=== PATIENT | female | born 1975 | race Caucasian/White ===

== ENCOUNTER 2020-12-09 08:25 | Day surgery (SDC) | payer BC ==
[~2020-12-09] VITALS: Ht 167.6 cm; Wt 70.5 kg
--- NOTE | ~2020-12-09 | OR ---
[facility] [address] [facility] [place], [place] [address] Draft DATE OF OPERATION: 12/09/2020 SURGEON: Claudia Flor MD PREOPERATIVE DIAGNOSES: Endometrial polyps, metrorrhagia. POSTOPERATIVE DIAGNOSES: Probable submucosal fibroid, metrorrhagia. PROCEDURES: Hysteroscopy, resection of probable fibroid. ANESTHESIA: MAC. ESTIMATED BLOOD LOSS: 20 mL. DRAINS: None. INDICATIONS AND FINDINGS: The patient is a 45-year-old female, currently using the patch to regulate her periods, who has been having intermenstrual bleeding, which has been worsening over the past several months; it has come from 1 to 3 weeks. Ultrasound was done, which revealed endometrial polyps. At the time of surgery, the exam under anesthesia was revealed a normal-size uterus. On hysteroscopy, there was a large polyp at the fundus. DESCRIPTION OF PROCEDURE: The patient was prepped and draped in the dorsal lithotomy position. A weighted speculum was placed in the anterior lip of the cervix, it was visualized and grasped with a single-tooth tenaculum. The cavity sounded to 10 cm. The endocervical canal was initially dilated to a #9 dilator. The MyoSure device was placed and the cavity evaluated. The large polyp was seen. Following this, the MyoSure Lite was introduced. An attempt was made to remove the polyp, but the MyoSure Lite was unable to get a good bite on this and this was discontinued. The MyoSure device was removed and the endocervical canal was then dilated to a #11 dilator; this allowed for introduction of some ring forceps and the polyp was grasped and a small piece was removed, followed by a much larger piece subsequently. The MyoSure device was replaced and the REACH was used, PATIENT NAME: ANDREW KEEN OPERATIVE REPORT DATE OF : 73 REPORT #: [id number] PHYSICIAN: LCAUDIA FLOR MD PCP: XAVI CLEMONS MD REPORT IS CONFIDENTIAL AND NOT TO BE RELEASED WITHOUT AUTHORIZATION [facility] [address] [place], [place] [address] Draft and this allowed for resection of more of the polyp; it was very firm and it was felt this was likely a fibroid. There was difficulty with the MyoSure device. Overall, however, as it was saying that there was a large fluid excess, though there was clearly no breach of the uterine cavity. There was quite a bit of leakage behind the patient where the underlying drapes and floor were wet. Because of this, the procedure was stopped and the ring forceps introduced a final time with removal of another large piece of the polyp. The procedure was then terminated. The tenaculum was removed. There was no evidence of any ongoing bleeding from the cervix or from the tenaculum site. The patient was then taken to the recovery room in good condition. All sponge and needle counts were correct. Claudia Flor MD PJW/MODL /[id number] Copies: ~ PATIENT NAME: ANDREW KEEN OPERATIVE REPORT DATE OF : 73 REPORT #: [id number] PHYSICIAN: CLAUDIA FLOR MD PCP: XAVI CLEMONS MD REPORT IS CONFIDENTIAL AND NOT TO BE RELEASED WITHOUT AUTHORIZATION
[~2020-12-09 08:25] MED LIST: PAXIL10 MG PO
[2020-12-09] MEDS ORDERED: SUDAFED 12-HOU120 MG (08:39)
--- NOTE | 2020-12-09 12:01 | NUR ---
12/09/20 1201 [place] 1152 PT ARRIVED TO PACU ON 6L VIA MASK, PT WAKES EASILY AND DENIES PAIN. VSS. 1156 O2 REMOVED AND PT ROLLED TO BACK AND HOB INCREASED. 1158 MD AT BEDSIDE TALKING TO PT.
--- NOTE | 2020-12-14 14:46 | PATH ---
[facility] [address] [facility] [place], [place] [address] Signed SPECIMEN(S): A ENDOMETRIAL FIBROID SPECIMEN SOURCE: A. ENDOMETRIAL FIBROID CLINICAL HISTORY: Abnormal bleeding, possible endometrial polyps/fibroids FINAL PATHOLOGIC DIAGNOSIS: Endometrial fibroid, excision: - Fragments of leiomyoma and scant polypoid-like proliferative endometrium. - Negative for hyperplasia and atypia. DDF:cml:C2NR MICROSCOPIC EXAMINATION: Histologic sections of all submitted blocks are examined by light microscopy. These findings, together with the gross examination, support the pathologic diagnosis. GROSS DESCRIPTION: The specimen, labeled "LK, A," and designated on the requisition "endometrial fibroid, abnormal bleeding, possible endometrial polyps; fibroids," is received in formalin and consists of 2 Hamzah pad and a suction bag containing multiple moseley-white to dark red, soft to rubbery tissue fragments,, 6.2 x 3.4 x 0.7 cm in aggregate. The specimen is submitted in toto in 3 cassettes (A1-A3). AI (under the direct supervision of a pathologist) The Gross Description was prepared using a voice recognition system. The report was reviewed for accuracy; however, sound-alike word errors, addition and/or deletions may occur. If there is any question about this report, please contact Client Services. PERFORMING LABORATORY: The technical component was performed by [employer], [address] [place] [id number] (Second Watch Sergeant: Theresa Wood MD; CLIA# [id number]). Professional interpretation was performed by [employer], [address] [place] [id number] (Second Watch Sergeant: Theresa Wood MD; CLIA# [id number]). Diagnostician: Kingsley Fitzgerald DO Pathologist PATIENT NAME: ANDREW KEEN PATHOLOGY DATE OF : 73 REPORT #: [id number] PHYSICIAN: [facility] PCP: XAVI CLEMONS MD REPORT IS CONFIDENTIAL AND NOT TO BE RELEASED WITHOUT AUTHORIZATION [address] [place] [address] Signed Electronically Signed 12/14/2020 Copies: ~ PATIENT NAME: ANDREW KEEN PATHOLOGY DATE OF : 73 REPORT #: [id number] PHYSICIAN: [facility] PCP: XAVI CLEMONS MD REPORT IS CONFIDENTIAL AND NOT TO BE RELEASED WITHOUT AUTHORIZATION
== END 2020-12-09 11:10 | disposition home or self-care (01) ==
LOC: DS 08:25
PROVIDERS: ATTEND Obstetrics & Gynecology
PROC: 0UDB8ZX Extraction of Endometrium, Via Natural or Artificial Opening Endoscopic, Diagnostic (ICD-10-PCS; principal; 2020-12-09 09:00)
DX: D26.1 Other benign neoplasm of corpus uteri (principal); N92.1 Excessive and frequent menstruation with irregular cycle; E01.0 Iodine-deficiency related diffuse (endemic) goiter; F32.9 Major depressive disorder, single episode, unspecified; Z30.45 Encounter for surveillance of transdermal patch hormonal contraceptive device; Z88.2 Allergy status to sulfonamides; Z88.8 Allergy status to other drugs, medicaments and biological substances
CPT/HCPCS: 00952; J0131; J1885; J2001; J2405; J2704; J2765; J3010; J7121